=== PATIENT | male | born 1995 | race American Indian/Alaskan Native ===

== ENCOUNTER 2021-11-05 09:41 | Emergency (ER) | payer MEDICAID ==
[2021-11-05 10:12] VITALS: BP 151/99
--- NOTE | 2021-11-05 12:04 | Emergency Department Report ---
ED Extremity Problem HPI - General Chief complaint: Extremity Problem,Nontraumatic Stated complaint: DIABETIC Time Seen by Provider: 11/05/21 11:38 Source: patient Mode of arrival: Ambulatory Limitations: No Limitations - History of Present Illness Initial comments: Patient presents with bilateral foot pain. He is a type I diabetic and has been for 20+ years. Patient states that he has been having a burning and tingling pain in both feet. This is progressively worsening. It starts in the feet and is progressed up to the ankles. Recently, he states his glucose has been a little bit elevated. He has no fevers or chills per there is no cough or congestion but there is no trauma. He states that he does check his feet on a regular basis. There has been no warmth or erythema. There is no injury. He is not having symptoms in the other extremities. - Related Data Previous Rx's Medication Instructions Recorded Last Taken Type Gabapentin [Neurontin] 600 mg PO Q8H #90 tab 11/05/21 Unknown Rx Allergies Allergy/AdvReac Type Severity Reaction Status Date / Time Iodine and Iodide Containing Allergy Unknown Verified 11/05/21 10:09 Produc ED Review of Systems ROS: Stated complaint: DIABETIC Other details as noted in HPI Comment: All other systems reviewed and negative Constitutional: denies: fever Eyes: denies: vision change ENT: denies: throat pain Respiratory: denies: cough Cardiovascular: denies: chest pain Endocrine: denies: unexplained weight loss Gastrointestinal: denies: abdominal pain Genitourinary: denies: dysuria Musculoskeletal: denies: back pain Skin: denies: rash Neurological: denies: headache Hematological/Lymphatic: denies: easy bruising ED Past Medical Hx - Past Medical History Hx Diabetes: Yes (Type I) - Family History Family history: diabetes - Medications Home Medications: Home Medications Medication Instructions Recorded Confirmed Last Taken Type Gabapentin [Neurontin] 600 mg PO Q8H #90 tab 11/05/21 Unknown Rx ED Physical Exam - General Limitations: No Limitations, Other (Pulse ox noted and normal) General appearance: alert, in no apparent distress - Head Head exam: Present: atraumatic, normocephalic - Eye Eye exam: Present: normal appearance, PERRL, EOMI. Absent: scleral icterus - ENT ENT exam: Present: normal orophraynx, normal external ear exam - Neck Neck exam: Present: normal inspection. Absent: meningismus - Respiratory Respiratory exam: Present: normal lung sounds bilaterally. Absent: respiratory distress - Cardiovascular Cardiovascular Exam: Present: regular rate, normal rhythm - GI/Abdominal GI/Abdominal exam: Present: soft. Absent: distended - Extremities Exam Extremities exam: Present: normal capillary refill, other (No warmth or erythema involving the feet. There is no wound noted.). Absent: calf tenderness - Back Exam Back exam: Present: full ROM - Neurological Exam Neurological exam: Present: alert, oriented X3, CN II-XII intact, normal gait - Psychiatric Psychiatric exam: Present: normal affect, normal mood - Skin Skin exam: Present: warm, dry ED Course Vital Signs 11/05/21 10:12 Pulse Rate 94 H Respiratory 16 Rate Blood Pressure 151/99 [Left] O2 Sat by Pulse 99 Oximetry - Reevaluation(s) Reevaluation #1: 11/05/21 12:22 Patient was discharged. ED Medical Decision Making - Medical Decision Making Patient presents with progressive bilateral foot pain in the setting of diabetic neuropathy. He does not have evidence of a cellulitis. There is no plantar wound suggestive of any kind of osteomyelitis. This is bilateral. He does not have hand involvement. I do believe this is consistent with diabetic neuropathy. Patient is visiting here for the next month. He lives in [place]. Patient was given the name and number of a doctor to follow-up with here in case he needs one. Critical Care Time: No Critical care attestation.: If time is entered above; I have spent that time in minutes in the direct care of this critically ill patient, excluding procedure time. ED Disposition Clinical Impression: Diabetic neuropathy Qualifiers: Diabetes mellitus type: type 1 Diabetes mellitus complication detail: diabetic polyneuropathy Qualified Code(s): E10.42 - Type 1 diabetes mellitus with diabetic polyneuropathy Disposition: HOME / SELF CARE / HOMELESS Is pt being admited?: No Condition: Stable Instructions: Diabetes Mellitus and Foot Care, Neuropathic Pain, Diabetes Mellitus Type 2 in Adults (ED) Additional Instructions: Avoid carbohydrates. Drink plenty of water. Continue your insulin. Follow-up with your regular doctor for recheck and further evaluation. Prescriptions: Gabapentin [Neurontin] 600 mg PO Q8H #90 tab Referrals: CIARRA MEREDITH MD [Staff Physician] - 3-5 Days
== END 2021-11-05 13:24 | disposition home or self-care (01) ==
LOC: ED 09:41
DX: E10.40 Type 1 diabetes mellitus with diabetic neuropathy, unspecified (principal)
CPT/HCPCS: 99282